=== PATIENT | female | born 1980 | race Caucasian/White ===

== ENCOUNTER 2018-01-21 19:23 | Emergency (ER) | payer BC ==
[2018-01-21 19:42] LABS: URINE BILIRUBIN NEGATIVE (NEGATIVE); URINE BLOOD LARGE (NEGATIVE); URINE GLUCOSE (UA) NEGATIVE (NEGATIVE); URINE KETONE NEGATIVE (NEGATIVE); URINE LEUKOCYTE ESTERASE NEGATIVE (NEGATIVE); URINE NITRITE POSITIVE (NEGATIVE); URINE PROTEIN TRACE (NEGATIVE); URINE UROBILINOGEN 0.2 E.U./dL (0.20 - 1.00)
[2018-01-21 19:46] LABS: URINE APPEARANCE SL CLOUDY; URINE COLOR AMBER
[2018-01-21 19:53] LABS: URINE WBC 0 - 2 (0-2/hpf)
[2018-01-21 19:54] LABS: HCG,QUALITATIVE URINE NEGATIVE (NEGATIVE); URINE AMORPHOUS SEDIMENT 1+; URINE BACTERIA FEW
[2018-01-21] MEDS ORDERED: 0.9 % SODIUM CHLORIDE 1000ML 1,000 ML IV ONE (20:07)
[2018-01-21] MEDS ORDERED: ONDANSETRON HCL IV 4 MG/2 ML VIAL IVP ONE (20:07)
[2018-01-21 20:31] LABS: BASO % 0.5 % (0-6); EOS % 4.2 % (0-6); GRAN % 53.2 % (47-80); HEMATOCRIT 39.6 % (35.0-47.0); LYMPH % 31.4 % (16-45); MEAN CORPUSCULAR HEMOGLOBIN 30.8 pg (27-33); MEAN CORPUSCULAR HGB CONC 35.4 g/dl (32-36); MONO % 10.7 % (0-9); PLATELET COUNT 272 K/uL (130-400); RED BLOOD COUNT 4.55 M/uL (3.80-5.40); RED CELL DISTRIBUTION WIDTH 13.2 % (11.5-14.5); WHITE BLOOD COUNT W/O DIFF 8.6 K/uL (4.2-12.2)
[2018-01-21 20:43] LABS: BLOOD UREA NITROGEN 7 mg/dL (6-20); CREATININE 0.7 mg/dL (0.5-0.9); EST GLOMERULAR FILTRATION RATE > 60 mL/min
[2018-01-21 20:46] LABS: GLUCOSE,RANDOM 101 mg/dL (74-109)
--- NOTE | 2018-01-21 20:49 | Emergency Department Record ---
History of Present Illness - General Chief complaint: Flank Pain Stated complaint: FLANK PAIN Time Seen by Provider: 01/21/18 20:42 Source: Patient Mode of Arrival: Ambulatory - History of Present Illness Initial comments: The patient states that she has a history of kidney stones and she thinks she has another one. This morning she awakened with left flank pain, nausea, vomiting three times, and blood in her urine. Her discomfort has not been relieved with ibuprofens at home. She denies fevers, chills, URI symptoms, or other complaints. Onset/Timin -: Hour(s) Location: LLQ Radiation: L flank Severity scale (1-10): 9 Quality: Sharp, Stabbing Consistency: Constant, Getting worse Improves with: None Worsens with: None Patient : No Associated Symptoms: Nausea/vomiting - Related Data Previous Rx's Medication Instructions Recorded Hydrocodone/Acetaminophen [Ripley 1 tab PO Q8H PRN #5 tab 01/21/18 5mg/325mg] Ondansetron [Zofran Odt] 4 mg PO Q8H #7 tab.rapdis 01/21/18 Sulfamethoxazole/Trimethoprim 1 each PO BID #20 tablet 01/21/18 [Bactrim Ds Tablet] Allergies Allergy/AdvReac Type Severity Reaction Status Date / Time shellfish derived Allergy HIVES Verified 01/21/18 19:59 Travel Screening - Travel/Exposure Within Last 30 Days Have you traveled within the last 30 days?: No - Travel Symptoms Symptom Screening: None Review of Systems Reviewed: No additional complaints except as noted below Constitutional: Reports: As per HPI. Denies: Chills, Fever, Malaise, Night sweats, Weakness, Weight change Eyes: Reports: As per HPI. Denies: Eye discharge, Eye pain, Photophobia, Vision change ENT: Reports: As per HPI. Denies: Congestion, Dental pain, Ear pain, Epistaxis , Hearing loss, Throat pain Respiratory: Reports: As per HPI. Denies: Cough, Dyspnea, Hemoptysis, Stridor, Wheezes Cardiovascular: Reports: As per HPI. Denies: Arrhythmia, Chest pain, Dyspnea on exertion, Edema, Murmurs, Orthopnea, Palpitations, Paroxysmal nocturnal dyspnea, Rheumatic Fever, Syncope Endocrine: Reports: As per HPI. Denies: Fatigue, Heat or cold intolerance, Polydipsia, Polyuria Gastrointestinal: Reports: As per HPI. Denies: Abdominal pain, Constipation, Diarrhea, Hematemesis, Hematochezia, Melena, Nausea, Vomiting Genitourinary: Reports: As per HPI. Denies: Abnormal menses, Discharge, Dyspareunia, Dysuria, Frequency, Hematuria, Incontinence, Retention, Urgency Musculoskeletal: Reports: As per HPI. Denies: Arthralgia, Back pain, Gout, Joint swelling, Myalgia, Neck pain Skin: Reports: As per HPI. Denies: Bruising, Change in color, Change in hair/ nails, Lesions, Pruritus, Rash Neurological: Reports: As per HPI. Denies: Abnormal gait, Confusion, Headache, Numbness, Paresthesias, Seizure, Tingling, Tremors, Vertigo, Weakness Psychiatric: Reports: As per HPI. Denies: Anxiety, Auditory hallucinations, Depression, Homicidal thoughts, Suicidal thoughts, Visual hallucinations Hematological/Lymphatic: Reports: As per HPI. Denies: Anemia, Blood Clots, Easy bleeding, Easy bruising, Swollen glands Past Medical History - SOCIAL HISTORY Smoking Status: Never smoker - RESPIRATORY Hx Respiratory Disorders: No - CARDIOVASCULAR Hx Cardio Disorders: No - NEURO Hx Neuro Disorders: No - GI Hx GI Disorders: Yes Hx Reflux: Yes - Hx Genitourinary Disorders: Yes Hx Kidney Stones: Yes - ENDOCRINE Hx Diabetes: No Hx Thyroid Disease: No - MUSCULOSKELETAL Hx Musculoskeletal Disorders: No - PSYCH Hx Psych Problems: Yes Hx Anxiety: Yes Hx Depression: Yes - HEMATOLOGY/ONCOLOGY Hx Hematology/Oncology Disorders: No Family Medical History Any Significant Family History?: Yes Hx Cancer: Grandparents Hx HTN: Father, Grandparents Physical Exam - General General Appearance: Alert, Oriented x3, Cooperative, Moderate distress - Head Head exam: Normal inspection - Eye Eye exam: Normal appearance, PERRL, EOMI Pupils: Normal accommodation - ENT ENT exam: Normal exam, Mucous membranes dry, Normal external ear exam, Normal orophraynx, TM's normal bilaterally Ear exam: Normal external inspection. negative: External canal tenderness Nasal Exam: Normal inspection. negative: Discharge, Sinus tenderness Mouth exam: Normal external inspection, Tongue normal Teeth exam: Normal inspection. negative: Dental caries Throat exam: Normal inspection. negative: Tonsillar erythema, Tonsillar exudate - Neck Neck exam: Normal inspection, Full ROM. negative: Lymphadenopathy, Meningismus , Tenderness - Respiratory Respiratory exam: Normal lung sounds bilaterally. negative: Respiratory distress - Cardiovascular Cardiovascular Exam: Regular rate, Normal rhythm, Normal heart sounds - GI/Abdominal GI/Abdominal exam: Soft, Normal bowel sounds, Tenderness (left lower radiating around to left flank tenderness on palpation) - Rectal Rectal exam: Deferred - exam: Deferred - Extremities Extremities exam: Normal inspection, Full ROM, Normal capillary refill. negative: Calf tenderness, Pedal edema, Tenderness - Back Back exam: Reports: Normal inspection, Full ROM. Denies: Muscle spasm, Rash noted, Tenderness - Neurological Neurological exam: Alert, Normal gait, Oriented X3, Reflexes normal - Psychiatric Psychiatric exam: Normal affect, Normal mood - Skin Skin exam: Dry, Intact, Normal color, Warm Course Vital Signs 01/21/18 20:00 Temperature 98.1 F Pulse Rate 92 H Respiratory 18 Rate Blood Pressure 133/114 Pulse Ox 97 - Reevaluation(s) Reevaluation #1: Nausea has resolved and her pain has greatly improved. All results reviewed and questions answered. Patient will be sent home on bactrim and zofran and 2 days of norco for pain. She will return if she is unable to keep her meds down or if she is worsened. 01/21/18 22:24 Medical Decision Making - Management Options MDM Management: No Additional Work-up Planned - Data Complexity MDM Data: Labs Ordered and/or Reviewed, X-Ray Ordered and/or Reviewed ( Noncontrst AbdPelvis CT: No obstructing stone, some phleboliths, stone in pole of left kidney. ) - Lab Data Result diagrams: 01/21/18 20:15 01/21/18 20:15 Lab Results 01/21/18 01/21/18 Range/Units 19:35 20:15 WBC 8.6 (4.2-12.2) K/uL RBC 4.55 (3.80-5.40) M/uL Hgb 14.0 (11.6-16.0) gm/dl Hct 39.6 (35.0-47.0) % MCV 87.0 (81-97) fl MCH 30.8 (27-33) pg MCHC 35.4 (32-36) g/dl RDW 13.2 (11.5-14.5) % Plt Count 272 (130-400) K/uL MPV 10.0 (7.4-10.4) fl Gran % 53.2 (47-80) % Lymphocytes % 31.4 (16-45) % Monocytes % 10.7 H (0-9) % Eosinophils % 4.2 (0-6) % Basophils % 0.5 (0-6) % Urine Color [place] Urine Appearance Sl cloudy Urine pH 6.0 (5.0-8.0) Ur Specific [place] 1.020 (1.002-1.030) Urine Protein Trace H (NEGATIVE) Urine Glucose (UA) Negative (NEGATIVE) Urine Ketones Negative (NEGATIVE) Urine Blood Large H (NEGATIVE) Urine Nitrite Positive H (NEGATIVE) Urine Bilirubin Negative (NEGATIVE) Urine Urobilinogen 0.2 (0.20 - 1.00) E.U./dL Ur Leukocyte Esterase Negative (NEGATIVE) Urine RBC 3 - 6 (NONE SEEN) Urine WBC 0 - 2 (0-2/hpf) Ur Epithelial Cells 3 - 6 (FEW) Amorphous Sediment 1+ Urine Bacteria Few Urine HCG, Qual Negative (NEGATIVE) Disposition Disposition: Discharge Clinical Impression: Pyelonephritis Disposition: Home, Self-Care Condition: (1) Good Instructions: Flank Pain (ED), Urinary Tract Infection in Women (ED) Additional Instructions: Take antibiotics as directed starting in a.m. Zofran prior to antibiotics for nausea and vomiting. Push fluids. Ripley as directed IF needed for pain. follow up with PCP for recheck of UA 1 week. Return if unable to keep your antibiotics down of if worsened. Prescriptions: Hydrocodone/Acetaminophen [Ripley 5mg/325mg] 1 tab PO Q8H PRN #5 tab PRN Reason: Pain - General Ondansetron [Zofran Odt] 4 mg PO Q8H #7 tab.rapdis Sulfamethoxazole/Trimethoprim [Bactrim Ds Tablet] 1 each PO BID #20 tablet Quality - Quality Measures Quality Measures: N/A - Blood Pressure Screening Does Patient Have Any of the Following: No Blood Pressure Classification: Hypertensive Reading Systolic Measurement: 133 Diastolic Measurement: 114 Screening for High Blood Pressure: < Normal BP, F/U Not Required > [G8783]
[2018-01-21] MEDS ORDERED: KETOROLAC 30 MG/ML VIAL IVP ONE (20:52)
[2018-01-21] MEDS ORDERED: 0.9 % SODIUM CHLORIDE 1,000 ML BAG IV ONE (20:53)
[2018-01-21] MEDS ORDERED: CEFTRIAXONE SODIUM 1 GM in 0.9 % SODIUM CHLORIDE 100ML 100 ML IVPB ONE (21:17)
[2018-01-21] MEDS ORDERED: HYDROMORPHONE HCL 2 MG/ML VIAL IVP ONE (21:31)
[2018-01-21] MEDS ORDERED: HYDROCODONE/APAP 5/325MG TABLET PO ONE (22:28)
[2018-01-21] MEDS ORDERED: ONDANSETRON 4 MG ODT TABLET SL ONE (22:28)
--- NOTE | 2018-01-23 11:51 | CT SCAN REPORT ---
DATE: 01/21/2018. EXAM: EMERGENCY CT SCAN OF THE ABDOMEN AND PELVIS WITHOUT CONTRAST. HISTORY: Left flank pain and blood in the urine. Possible kidney stone. Prior appendectomy and cholecystectomy. TECHNIQUE: Axial CT scan of the abdomen and pelvis was performed without oral or intravenous contrast. COMPARISON: CT of the abdomen and pelvis dated 08/25/2015. FINDINGS: A single, tiny, nonobstructing calculus in the lower pole of the left kidney. No definite hydronephrosis or hydroureter is seen on either side. As such, it is somewhat difficult to follow the entire course of both ureters in their nondilated state throughout the retroperitoneum and pelvis, but no definite ureteral calculus is seen on either side. There does appear to be a new tiny calcification in the left side of the pelvis when comparison is made with the prior CT scan. It is very difficult to establish the relationship of this calcification to the left ureter itself as the nondilated left ureter is very difficult to confidently identify, but I suspect that this calcification is posterior to the level of the ureter and is probably just a new phlebolith. If there remains a strong clinical suspicion of a distal left ureteral calculus , follow-up CT urography could be performed. Postoperative cholecystectomy with surgical clips in the gallbladder fossa. Appendix not identified consistent with a surgical history as well. Evaluation of the bowel and viscera is very limited without oral or intravenous contrast. Given this limitation, no definite hepatic, splenic, adrenal, pancreatic, or renal mass identified. No free intraperitoneal air or free intraperitoneal fluid identified. Minor spurring in the spine. IMPRESSION: 1. SINGLE TINY NONOBSTRUCTING CALCULUS LOWER POLE LEFT KIDNEY. 2. NO DEFINITE HYDRONEPHROSIS OR URETERAL CALCULUS SEEN. NEW LEFT SIDED PELVIC CALCIFICATION COMPARED TO THE PRIOR STUDY IS PROBABLY JUST A PHLEBOLITH THAT HAS DEVELOPED IN THE INTERVAL. IF THERE REMAINS A STRONG CLINICAL SUSPICION OF DISTAL LEFT URETERAL CALCULUS, HOWEVER, FOLLOW-UP CT UROGRAPHY MIGHT BE USEFUL. 3. POSTOP CHOLECYSTECTOMY AND APPENDECTOMY. 4. MINOR SPURRING IN THE SPINE. JOB NUMBER: [id number] [facility]
== END 2018-01-21 22:39 | disposition home or self-care (01) ==
LOC: ER 19:23
DX: N10 Acute pyelonephritis (principal); R10.32 Left lower quadrant pain; R11.2 Nausea with vomiting, unspecified; Z87.442 Personal history of urinary calculi
CPT/HCPCS: 99284 ×2; 96365; 96375; 96361; 85025; 80048; 81001; 81025; 74176; J1885; J2405; J1170; J7030